=== PATIENT | male | born 1960 | race Caucasian/White ===

== ENCOUNTER → 2020-07-30 | Outpatient (CLI) | payer BC ==
[~2020-07-30] MED LIST: ASPIRIN CHEWABL81 MG PO; ATORVASTATIN CA40 MG PO; COREG 12.5MG12.5 MG PO; COZAAR100 MG PO; ENTRESTO 24 MG1 EACH PO; GLUCOPHAGE500 MG PO; LASIX20 MG PO; LOPRESSOR50 MG PO; VENTOLIN HFA 66.7 GM INH
== END ==
LOC: EXRD 08:16
DX: I20.8 Other forms of angina pectoris (principal); I65.21 Occlusion and stenosis of right carotid artery
CPT/HCPCS: 93880

== ENCOUNTER → 2020-08-30 | Outpatient (CLI) | payer BC | LOC: CT 08-10 09:30 | DX: I65.21 Occlusion and stenosis of right carotid artery (principal); R09.89 Other specified symptoms and signs involving the circulatory and respiratory systems | CPT/HCPCS: 36415; 70498; 82565; 84520; Q9967 ==

== ENCOUNTER → 2020-10-11 | Outpatient (CLI) | payer BC | LOC: HEART 5 10-10 10:30 | DX: I42.9 Cardiomyopathy, unspecified (principal); R07.9 Chest pain, unspecified; I65.29 Occlusion and stenosis of unspecified carotid artery; I08.0 Rheumatic disorders of both mitral and aortic valves; Z95.1 Presence of aortocoronary bypass graft | CPT/HCPCS: 93306 ==